=== PATIENT | female | born 1990 | race Caucasian/White ===

== ENCOUNTER → 2017-06-13 | Outpatient (CLI) | payer BC | LOC: FCPNEURO 23:38 | PROVIDERS: ATTEND Student in an Organized Health Care Education/Training Program | DX: G47.10 Hypersomnia, unspecified (principal) ==

== ENCOUNTER → 2017-12-19 | Outpatient (CLI) | payer BC ==
--- NOTE | 2017-12-21 20:30 | CPEEG ---
[f rep st] ELECTROENCEPHALOGRAM 24-HOUR AMBULATORY ELECTROENCEPHALOGRAM DATE OF STUDY: DATE OF INTERPRETATION: December 19, 2017 to December 20, 2017 INTERPRETATION: This 24-hour ambulatory EEG recording is normal. There were no potentially epileptogenic abnormalities present in the awake or sleep recordings. The patient provided diary noted an episode of "zone out." This event did not have an EEG correlate and would be consistent with nonepileptic symptoms. REPORT: This 24-hour ambulatory EEG recording was performed from December 19 to December 20, 2017. The background contained 9-10 Hz alpha activity the posterior head regions. The background activity was normal and symmetric. There was no abnormal activation at rest. The patient became drowsy and fell into sustained sleep during the study. There was no abnormal activation during drowsiness, sleep, or during times of arousal. The patient provided diary reported an episode of "zone out while looking at my phone" at 6:35 p.m. on December 19, 2017. This event did not have an abnormal EEG correlate. Only union representative samples of wakefulness, sleep, and patient provided symptoms were reviewed with this study. /[id number]/MODL MTDD
== END ==
LOC: FCPNEURO 14:40
PROVIDERS: ATTEND Physician Assistant Medical
DX: R41.840 Attention and concentration deficit (principal)